=== PATIENT | female | born 1950 | race Caucasian/White ===

== ENCOUNTER → 2023-03-24 09:36 | Outpatient (REF) | payer MEDICARE, OTHER, SELFPAY | LOC: RAD 09:36 | PROVIDERS: ATTENDING PHYSICIAN Internal Medicine Cardiovascular Disease; FAMILY PHYSICIAN Internal Medicine | DX: E78.2 Mixed hyperlipidemia (principal) | CPT/HCPCS: 75574; Q9967 ==

== ENCOUNTER → 2023-04-15 07:30 | Outpatient (REF) | payer MEDICARE, OTHER, SELFPAY ==
[2023-04-15 09:09] LABS: TSH Reflex To Free T4 1.14 uIU/ml (0.47-4.68)
== END ==
LOC: REG 07:30
PROVIDERS: ATTENDING PHYSICIAN Internal Medicine Endocrinology, Diabetes & Metabolism; FAMILY PHYSICIAN Internal Medicine
DX: E03.9 Hypothyroidism, unspecified (principal)
CPT/HCPCS: 36415; 84443; 84481

== ENCOUNTER → 2023-07-14 06:30 | Day surgery (SDC) | payer MEDICARE, OTHER, SELFPAY | LOC: GI 06:30 | PROVIDERS: ATTENDING PHYSICIAN Internal Medicine Gastroenterology; FAMILY PHYSICIAN Internal Medicine | DX: Z12.11 Encounter for screening for malignant neoplasm of colon (principal); D12.2 Benign neoplasm of ascending colon; K57.30 Diverticulosis of large intestine without perforation or abscess without bleeding; K64.8 Other hemorrhoids; K64.4 Residual hemorrhoidal skin tags; Z86.010 Personal history of colon polyps | CPT/HCPCS: 45385; 88305 ==

== ENCOUNTER → 2023-07-23 09:05 | Outpatient (REF) | payer MEDICARE, OTHER, SELFPAY ==
[2023-07-23 09:46] LABS: % Basophils 0.8 % (0-2); % Immature Granulocytes 0.1 % (0-0.5); % Lymphocytes 29.8 % (20.5-51.1); % Monocytes 7.2 % (1.7-9.3); % Neutrophils 59.1 % (42.2-75.2); Absolute Basophils 0.1 10^3/uL (0-0.2); Absolute Eosinophils 0.2 10^3/uL (0-0.7); Absolute Lymphocytes 2.1 10^3/uL (1.2-3.4); Absolute Monocytes 0.5 10^3/uL (0.1-0.6); Absolute Neutrophils 4.2 10^3/uL (1.4-6.5); Hemoglobin 16.2 g/dL (12.0-16.0); Mean Corp Hgb Conc. 34.5 g/dL (33.0-37.0); Mean Corpuscular Hgb 29.6 pg (27.0-31.0); Mean Corpuscular Volume 85.8 fL (81.0-99.0); Mean Platelet Volume 10.2 fL (7.4-10.4); Nucleated Red Blood Cells % 0 %; Platelet Count 283 10^3/uL (130-400); Red Blood Cell Count 5.48 10^6/uL (4.20-5.40); Red Cell Dist. Width 13.5 % (11.5-14.5); White Blood Cell Count 7.1 10^3/uL (4.8-10.8)
[2023-07-23 10:10] LABS: Blood Urea Nitrogen 18 mg/dl (7-17); Calcium 9.8 mg/dl (8.4-10.2); Carbon Dioxide 26 mmol/L (22-30); Chloride 107 mmol/L (98-107); Glucose 109 mg/dl (70-99); Potassium 4.3 mmol/L (3.5-5.1); Sodium 142 mmol/L (135-145); eGFR > 60.00
== END ==
LOC: REG 09:05
PROVIDERS: ATTENDING PHYSICIAN Surgery
DX: K40.90 Unilateral inguinal hernia, without obstruction or gangrene, not specified as recurrent (principal)
CPT/HCPCS: 36415; 80048; 85025

== ENCOUNTER → 2023-08-02 08:15 | Outpatient (REF) | payer MEDICARE, OTHER, SELFPAY | LOC: RAD 08:15 | PROVIDERS: ATTENDING PHYSICIAN Surgery; FAMILY PHYSICIAN Internal Medicine | DX: K40.90 Unilateral inguinal hernia, without obstruction or gangrene, not specified as recurrent (principal) | CPT/HCPCS: 74177; Q9967 ==

== ENCOUNTER → 2023-09-10 12:40 | Outpatient (REF) | payer MEDICARE, OTHER, SELFPAY | LOC: RAD 12:40 | PROVIDERS: ATTENDING PHYSICIAN Surgery; FAMILY PHYSICIAN Internal Medicine | DX: K40.90 Unilateral inguinal hernia, without obstruction or gangrene, not specified as recurrent (principal); R59.1 Generalized enlarged lymph nodes | CPT/HCPCS: 76882 ==

== ENCOUNTER → 2023-10-25 07:05 | Outpatient (REF) | payer MEDICARE, OTHER, SELFPAY ==
[2023-10-25 08:16] LABS: % Eosinophils 3.1 % (0-6); % Immature Granulocytes 0.1 % (0-0.5); % Lymphocytes 24.2 % (20.5-51.1); % Monocytes 6.6 % (1.7-9.3); Absolute Basophils 0.1 10^3/uL (0-0.2); Absolute Eosinophils 0.2 10^3/uL (0-0.7); Absolute Lymphocytes 1.7 10^3/uL (1.2-3.4); Absolute Monocytes 0.5 10^3/uL (0.1-0.6); Absolute Neutrophils 4.6 10^3/uL (1.4-6.5); Hematocrit 45.9 % (37.0-47.0); Hemoglobin 15.7 g/dL (12.0-16.0); Mean Corp Hgb Conc. 34.2 g/dL (33.0-37.0); Mean Corpuscular Hgb 29.2 pg (27.0-31.0); Mean Corpuscular Volume 85.3 fL (81.0-99.0); Mean Platelet Volume 10.2 fL (7.4-10.4); Nucleated Red Blood Cells % 0 %; Platelet Count 283 10^3/uL (130-400); Red Blood Cell Count 5.38 10^6/uL (4.20-5.40); Red Cell Dist. Width 13.2 % (11.5-14.5); White Blood Cell Count 7.1 10^3/uL (4.8-10.8)
[2023-10-25 08:59] LABS: ALT (SGPT) 24 U/L (0-35); AST (SGOT) 28 U/L (14-36); Albumin 4.5 g/dl (3.5-5.0); Alkaline Phosphatase 81 U/L (38-126); Blood Urea Nitrogen 18 mg/dl (7-17); Calcium 9.9 mg/dl (8.4-10.2); Carbon Dioxide 28 mmol/L (22-30); Chloride 105 mmol/L (98-107); Glucose 101 mg/dl (70-99); HDL Cholesterol 42 mg/dl; LDL Cholesterol, Calculated 140 mg/dl; Potassium 4.5 mmol/L (3.5-5.1); Sodium 144 mmol/L (135-145); Total Bilirubin 0.9 mg/dl (0.2-1.3); Total Cholesterol 229 mg/dl (50-199); Total Protein 7.1 g/dl (6.3-8.2); Triglyceride 235 mg/dl (10-149); Very Low Density Lipoprotein 47 mg/dl (0-30); eGFR 59.49
[2023-10-25 09:19] LABS: Vitamin D, 25-OH*** 34.8 ng/mL (30-80)
[2023-10-25 09:33] LABS: TSH Reflex To Free T4 1.78 uIU/ml (0.47-4.68)
[2023-10-25 11:00] LABS: Folate 7.6 ng/ml (2.76-20); Vitamin B12 403 pg/ml (239-931)
== END ==
LOC: REG 07:05
PROVIDERS: ATTENDING PHYSICIAN Internal Medicine
DX: R53.83 Other fatigue (principal); E78.2 Mixed hyperlipidemia; E03.9 Hypothyroidism, unspecified; E67.2 Megavitamin-B6 syndrome; D51.0 Vitamin B12 deficiency anemia due to intrinsic factor deficiency; E53.0 Riboflavin deficiency; M79.11 Myalgia of mastication muscle
CPT/HCPCS: 36415; 80053; 80061; 82306; 82607; 82746; 84207; 84425; 84443; 85025

== ENCOUNTER → 2023-12-03 08:02 | Outpatient (REF) | payer MEDICARE, OTHER, SELFPAY ==
[2023-12-03 09:34] LABS: % Basophils 0.7 % (0-2); % Eosinophils 3.2 % (0-6); % Immature Granulocytes 1.2 % (0-0.5); % Lymphocytes 28.3 % (20.5-51.1); % Monocytes 6.5 % (1.7-9.3); % Neutrophils 60.1 % (42.2-75.2); Absolute Basophils 0.1 10^3/uL (0-0.2); Absolute Eosinophils 0.3 10^3/uL (0-0.7); Absolute Immature Granulocytes 0.1 10^3/uL (0-0.05); Absolute Lymphocytes 2.3 10^3/uL (1.2-3.4); Absolute Monocytes 0.5 10^3/uL (0.1-0.6); Absolute Neutrophils 4.8 10^3/uL (1.4-6.5); Hematocrit 48.3 % (37.0-47.0); Hemoglobin 16.9 g/dL (12.0-16.0); Mean Corpuscular Hgb 30.6 pg (27.0-31.0); Mean Corpuscular Volume 87.3 fL (81.0-99.0); Mean Platelet Volume 10.9 fL (7.4-10.4); Nucleated Red Blood Cells % 0 %; Platelet Count 208 10^3/uL (130-400); Red Blood Cell Count 5.53 10^6/uL (4.20-5.40); Red Cell Dist. Width 13.2 % (11.5-14.5)
[2023-12-03 10:29] LABS: ALT (SGPT) 30 U/L (0-35); AST (SGOT) 30 U/L (14-36); Albumin 4.9 g/dl (3.5-5.0); Alkaline Phosphatase 76 U/L (38-126); Blood Urea Nitrogen 22 mg/dl (7-17); Calcium 9.7 mg/dl (8.4-10.2); Carbon Dioxide 29 mmol/L (22-30); Chloride 102 mmol/L (98-107); Glucose 102 mg/dl (70-99); Potassium 4.2 mmol/L (3.5-5.1); Sodium 144 mmol/L (135-145); Total Bilirubin 0.8 mg/dl (0.2-1.3); Total Protein 7.7 g/dl (6.3-8.2); eGFR 59.49
[2023-12-03 10:31] LABS: Erythrocyte Sed Rate 14 mm/hour (0-20)
[2023-12-03 10:55] LABS: Hepatitis B Surface Antigen Negative (Negative)
[2023-12-03 11:13] LABS: Hepatitis B Surface Antibody Negative; Hepatitis C Antibody Negative (Negative); TSH 1.77 uIU/ml (0.47-4.68)
[2023-12-03 11:16] LABS: Hepatitis B Core Ab, IgM Negative (Negative)
[2023-12-04 09:11] LABS: Intact PTH 78.3 pg/ml (13.6-85.8)
[2023-12-05 09:50] LABS: HLA-B27 Negative (Negative)
== END ==
LOC: REG 08:02
PROVIDERS: ATTENDING PHYSICIAN Student in an Organized Health Care Education/Training Program; FAMILY PHYSICIAN Internal Medicine
DX: G89.29 Other chronic pain (principal); K75.81 Nonalcoholic steatohepatitis (NASH); M19.90 Unspecified osteoarthritis, unspecified site; M54.50 Low back pain, unspecified; R21 Rash and other nonspecific skin eruption; E78.5 Hyperlipidemia, unspecified
CPT/HCPCS: 36415; 80053; 83970; 84443; 85025; 85652; 86140; 86705; 86706; 86803; 86812; 87340

== ENCOUNTER → 2023-12-24 11:19 | Outpatient (REF) | payer MEDICARE, OTHER, SELFPAY ==
[2023-12-24 11:58] LABS: % Eosinophils 2.8 % (0-6); % Immature Granulocytes 0.3 % (0-0.5); % Lymphocytes 26.9 % (20.5-51.1); % Monocytes 9.3 % (1.7-9.3); % Neutrophils 59.7 % (42.2-75.2); Absolute Basophils 0.1 10^3/uL (0-0.2); Absolute Eosinophils 0.2 10^3/uL (0-0.7); Absolute Lymphocytes 2.2 10^3/uL (1.2-3.4); Absolute Monocytes 0.7 10^3/uL (0.1-0.6); Absolute Neutrophils 4.8 10^3/uL (1.4-6.5); Hematocrit 45.1 % (37.0-47.0); Hemoglobin 15.5 g/dL (12.0-16.0); Mean Corp Hgb Conc. 34.4 g/dL (33.0-37.0); Mean Corpuscular Hgb 30.2 pg (27.0-31.0); Mean Corpuscular Volume 87.7 fL (81.0-99.0); Mean Platelet Volume 10.2 fL (7.4-10.4); Nucleated Red Blood Cells % 0 %; Platelet Count 268 10^3/uL (130-400); Red Blood Cell Count 5.14 10^6/uL (4.20-5.40); Red Cell Dist. Width 13.3 % (11.5-14.5)
== END ==
LOC: REG 11:19
PROVIDERS: ATTENDING PHYSICIAN Nurse Practitioner Family
DX: D58.2 Other hemoglobinopathies (principal)
CPT/HCPCS: 36415; 85025

== ENCOUNTER → 2024-01-03 09:15 | Outpatient (REF) | payer MEDICARE, OTHER, SELFPAY ==
[2024-01-03 10:16] LABS: Urine Albumin Negative (Neg - Trace); Urine Bilirubin Negative (Negative); Urine Character Clear (Clear); Urine Color Yellow; Urine Glucose Negative (Negative); Urine Ketone Negative (Negative); Urine Leukocyte 1+ (Negative); Urine Nitrite Negative (Negative); Urine Occult Blood Negative (Negative); Urine Specific Gravity 1.015 (<1.030); Urine Urobilinogen Negative (Neg - 1+)
[2024-01-03 10:38] LABS: % Basophils 0.8 % (0-2); % Eosinophils 2.4 % (0-6); % Immature Granulocytes 0.1 % (0-0.5); % Lymphocytes 25.4 % (20.5-51.1); % Monocytes 7.3 % (1.7-9.3); Absolute Basophils 0.1 10^3/uL (0-0.2); Absolute Eosinophils 0.2 10^3/uL (0-0.7); Absolute Lymphocytes 1.9 10^3/uL (1.2-3.4); Absolute Monocytes 0.6 10^3/uL (0.1-0.6); Absolute Neutrophils 4.8 10^3/uL (1.4-6.5); Hematocrit 52.1 % (37.0-47.0); Mean Corp Hgb Conc. 32.6 g/dL (33.0-37.0); Mean Corpuscular Hgb 29.7 pg (27.0-31.0); Mean Corpuscular Volume 91.1 fL (81.0-99.0); Mean Platelet Volume 10.9 fL (7.4-10.4); Nucleated Red Blood Cells % 0 %; Platelet Count 231 10^3/uL (130-400); Red Blood Cell Count 5.72 10^6/uL (4.20-5.40); Red Cell Dist. Width 13.2 % (11.5-14.5); White Blood Cell Count 7.5 10^3/uL (4.8-10.8)
[2024-01-03 10:41] LABS: Urine Mucus Few
[2024-01-03 10:44] LABS: Urine Red Blood Cell 0-2 /HPF (0-2); Urine White Cell 0-2 /HPF (0-5)
[2024-01-03 11:04] LABS: ALT (SGPT) 27 U/L (0-35); AST (SGOT) 30 U/L (14-36); Alkaline Phosphatase 77 U/L (38-126); Blood Urea Nitrogen 18 mg/dl (7-17); Calcium 9.6 mg/dl (8.4-10.2); Carbon Dioxide 28 mmol/L (22-30); Chloride 101 mmol/L (98-107); Glucose 101 mg/dl (70-99); Potassium 4.6 mmol/L (3.5-5.1); Sodium 145 mmol/L (135-145); Total Bilirubin 0.9 mg/dl (0.2-1.3); Total Protein 7.9 g/dl (6.3-8.2); eGFR 59.49
[2024-01-03 11:15] LABS: Complement C3 170 mg/dl (88-165); IgA 199 mg/dl (70-400); IgG 1091 mg/dl (700-1600); IgM 135 mg/dl (40-230)
[2024-01-03 11:20] LABS: Urine Protein < 5 mg/dl
[2024-01-03 12:26] LABS: Erythrocyte Sed Rate 12 mm/hour (0-20)
[2024-01-05 03:49] LABS: ANA, IgG Reflex to HEp-2 None Detected (None Detected)
== END ==
LOC: REG 09:15
PROVIDERS: ATTENDING PHYSICIAN Student in an Organized Health Care Education/Training Program; FAMILY PHYSICIAN Internal Medicine
DX: E53.9 Vitamin B deficiency, unspecified (principal); G89.29 Other chronic pain; K75.81 Nonalcoholic steatohepatitis (NASH); M19.90 Unspecified osteoarthritis, unspecified site; M54.50 Low back pain, unspecified; R21 Rash and other nonspecific skin eruption
CPT/HCPCS: 36415; 80053; 81003; 81015; 82570; 82784; 84155; 84156; 84165; 85025; 85652; 86038; 86160

== ENCOUNTER → 2024-02-25 12:45 | Outpatient (REF) | payer MEDICARE, OTHER, SELFPAY ==
[2024-02-25 12:49] LABS: % Basophils 0.3 % (0-2); % Eosinophils 3.5 % (0-6); % Immature Granulocytes 0.1 % (0-0.5); % Lymphocytes 25.2 % (20.5-51.1); % Monocytes 9.3 % (1.7-9.3); % Neutrophils 61.6 % (42.2-75.2); Absolute Eosinophils 0.3 10^3/uL (0-0.7); Absolute Lymphocytes 1.9 10^3/uL (1.2-3.4); Absolute Monocytes 0.7 10^3/uL (0.1-0.6); Absolute Neutrophils 4.7 10^3/uL (1.4-6.5); Hemoglobin 16.8 g/dL (12.0-16.0); Mean Corp Hgb Conc. 33.6 g/dL (33.0-37.0); Mean Corpuscular Hgb 29.6 pg (27.0-31.0); Mean Corpuscular Volume 88.2 fL (81.0-99.0); Mean Platelet Volume 9.7 fL (7.4-10.4); Platelet Count 318 10^3/uL (130-400); Red Blood Cell Count 5.67 10^6/uL (4.20-5.40); White Blood Cell Count 7.6 10^3/uL (4.8-10.8)
[2024-02-28 06:11] LABS: Erythropoietin (EPO) 7 mU/mL (4-27)
== END ==
LOC: OIDL 12:45
PROVIDERS: ATTENDING PHYSICIAN Internal Medicine Hematology & Oncology
DX: D75.1 Secondary polycythemia (principal)
CPT/HCPCS: 82668; 85025

== ENCOUNTER → 2024-05-06 07:09 | Outpatient (REF) | payer MEDICARE, OTHER, SELFPAY ==
[2024-05-06 08:51] LABS: % Basophils 0.9 % (0-2); % Eosinophils 2.9 % (0-6); % Immature Granulocytes 0.3 % (0-0.5); % Lymphocytes 25.4 % (20.5-51.1); % Monocytes 8.5 % (1.7-9.3); Absolute Basophils 0.1 10^3/uL (0-0.2); Absolute Eosinophils 0.2 10^3/uL (0-0.7); Absolute Lymphocytes 1.7 10^3/uL (1.2-3.4); Absolute Monocytes 0.6 10^3/uL (0.1-0.6); Absolute Neutrophils 4.2 10^3/uL (1.4-6.5); Hemoglobin 15.9 g/dL (12.0-16.0); Mean Corp Hgb Conc. 33.8 g/dL (33.0-37.0); Mean Corpuscular Hgb 29.5 pg (27.0-31.0); Mean Corpuscular Volume 87.2 fL (81.0-99.0); Mean Platelet Volume 10.1 fL (7.4-10.4); Nucleated Red Blood Cells % 0 %; Platelet Count 257 10^3/uL (130-400); Red Blood Cell Count 5.39 10^6/uL (4.20-5.40); Red Cell Dist. Width 13.4 % (11.5-14.5); White Blood Cell Count 6.8 10^3/uL (4.8-10.8)
[2024-05-06 09:00] LABS: Erythrocyte Sed Rate 9 mm/hour (0-20)
[2024-05-06 09:42] LABS: ALT (SGPT) 29 U/L (0-35); AST (SGOT) 29 U/L (14-36); Albumin 4.2 g/dl (3.5-5.0); Alkaline Phosphatase 73 U/L (38-126); Blood Urea Nitrogen 21 mg/dl (7-17); Calcium 9.5 mg/dl (8.4-10.2); Carbon Dioxide 31 mmol/L (22-30); Chloride 105 mmol/L (98-107); Creatine Phosphokinase 72 U/L (30-135); Glucose 104 mg/dl (70-99); Lipase 90 U/L (23-300); Potassium 4.5 mmol/L (3.5-5.1); Sodium 144 mmol/L (135-145); Total Bilirubin 0.9 mg/dl (0.2-1.3); Total Protein 6.7 g/dl (6.3-8.2); eGFR 59.49
[2024-05-06 10:18] LABS: Ferritin 68.9 ng/ml (11.1-264.0)
[2024-05-07 19:42] LABS: Angiotensin-1-converting Enzym 32 U/L (16-85)
[2024-05-08 12:43] LABS: Lyme Antibody Screen, EIA Negative (Negative)
== END ==
LOC: RAD 07:09
PROVIDERS: ATTENDING PHYSICIAN Student in an Organized Health Care Education/Training Program; FAMILY PHYSICIAN Internal Medicine
DX: E53.9 Vitamin B deficiency, unspecified (principal); G89.29 Other chronic pain; K75.81 Nonalcoholic steatohepatitis (NASH); M19.90 Unspecified osteoarthritis, unspecified site; M54.50 Low back pain, unspecified; R21 Rash and other nonspecific skin eruption
CPT/HCPCS: 36415; 71046; 80053; 82164; 82550; 82728; 83690; 85025; 85652; 86140; 86618

== ENCOUNTER → 2024-05-30 06:42 | Outpatient (REF) | payer MEDICARE, OTHER, SELFPAY | LOC: RAD 06:42 | PROVIDERS: ATTENDING PHYSICIAN Student in an Organized Health Care Education/Training Program; FAMILY PHYSICIAN Internal Medicine | DX: R10.12 Left upper quadrant pain (principal) | CPT/HCPCS: 76700 ==

== ENCOUNTER → 2024-06-14 07:20 | Outpatient (REF) | payer MEDICARE, OTHER, SELFPAY ==
[2024-06-14 09:05] LABS: TSH 3.62 uIU/ml (0.47-4.68)
[2024-06-14 09:19] LABS: Free T3 3.05 pg/ml (2.77-5.27)
== END ==
LOC: REG 07:20
PROVIDERS: ATTENDING PHYSICIAN Internal Medicine Endocrinology, Diabetes & Metabolism; FAMILY PHYSICIAN Internal Medicine
DX: E03.9 Hypothyroidism, unspecified (principal)
CPT/HCPCS: 36415; 84439; 84443; 84481

== ENCOUNTER 2024-09-14 10:18 | Emergency (ER) | payer MEDICARE, OTHER, SELFPAY ==
[2024-09-14 10:22] VITALS: BP 138/82
[2024-09-14 10:23] VITALS: BMI 31.5
[2024-09-14 10:24] VITALS: BP 138/82
--- NOTE | 2024-09-14 10:54 | ED.GENMED ---
History of Present Illness
General
Chief Complaint: Musculo-Skeletal Complaint
Time Seen by Provider: 09/14/24 10:25
History of Present Illness
History of Present Illness:
74-year-old female presenting with left calf pain starting 09/10. Patient states that she had left meniscus surgery on 09/08. Patient states that she been taking baby aspirin with no relief. Patient denies leg swelling, chest pain or shortness of
breath. Patient states that yesterday morning she noticed a rash to the distal knee/proximal lower leg. Patient denies fever, chills, new lotions/detergents or bandages. Patient states that she had a bandage with Ciro wrap on her left knee that
she removed on Sunday 09/10. No blood thinners.
Past History
Past History
ED Past Medical History: Hypothyroidism and Other (Patient states that she had a mild [place] 3 years ago, thyroid disorder, pneumonia, sleep apnea, arthritis); Negative HTN or NIDDM
ED Past Surgical History: Cardiac (Cardiac catheterization) and Other (thyroidectomy, foot surgery, knee surgery, hysterectomy, D&C)
Social History
Tobacco: Non-smoker
Alcohol: None
Drug: None
Personal:
Living: with family
Employment: Employed
Family History
Family History: CAD
Phy Exam
Physical Exam
Physical Exam:
General: Alert, no acute distress
Head: NCAT
Eyes: clear conjunctiva
Neck: supple
Cardiac: regular rate and rhythm, no murmur
Lungs: clear to auscultation bilaterally. No wheezes, rales, or rhonchi. Speaking full unlabored sentences. No respiratory distress.
Abdomen: soft, nondistended nontender. No rebound or guarding.
MSK: no lower extremity edema bilaterally. [address] to left inferior knee with surrounding ecchymosis. No overlying erythema, increased warmth or discharge. Tenderness palpation to left calf. No left leg edema compared to right. 2+
left DP pulse. erythematous rash circumferential to left proximal lower leg, appears like contact dermatitis. no vesicles
Skin: warm, dry
Neuro: Alert and oriented x3. no focal deficits
Course
Orders/Labs/Results
Orders:
Orders
09/14/24 10:39
Venous Doppler Lwr Ext Left [US Periph Venous LOWER Ext LT] Urgent
Comment:
Reason For Exam: calf pain, recent left knee surgery
09/14/24 11:40
Apixaban [Eliquis] 10 mg PO ONCE ONE
09/14/24 11:58
CBC/With Diff [Complete Blood Count/With Diff] Urgent
CMP [Comprehensive Metabolic Panel] Urgent
Protime/PTT Urgent
09/14/24 13:50
Apixaban [Eliquis] 10 mg PO ONCE ONE
Abnormal Lab Results
09/14/24
11:58
RBC 5.54 H 10^6/uL
(4.20-5.40)
Hgb 16.1 H g/dL
(12.0-16.0)
Hct 48.1 H %
(37.0-47.0)
Absolute Monos (auto) 0.7 H 10^3/uL
(0.1-0.6)
Potassium 5.2 H mmol/L
(3.5-5.1)
BUN 22 H mg/dl
(7-17)
Glucose 107 H mg/dl
(70-99)
09/14/24 11:58
09/14/24 11:58
Vital Signs
Initial and Last Documented VS:
Initial Vital Signs
BP Pulse Ox
138/82 98
09/14/24 10:22 09/14/24 10:22
Last Documented Vital Signs
Temp Pulse Resp BP Pulse Ox
98.4 F 97 18 113/61 95
09/14/24 10:24 09/14/24 10:24 09/14/24 10:24 09/14/24 12:00 09/14/24 13:45
MDM/Problems Addressed
Differential Diagnosis Includes:
DVT, muscle strain
MDM/Problems Addressed:
Left lower extremity duplex reviewed, concerning for left posterior tibial vein DVT. Ordered labs, showed no anemia/thrombocytopenia, creatinine within normal limits. Started patient on Eliquis. Discussed results with patient at bedside. Stable
for discharge with hematology/orthopedic follow-up. Discussed return precautions including chest pain, shortness of breath, or worsening leg swelling/pain. Patient expressed verbal understanding.
*Pulse Oximetry
SaO2: 96
Oxygen Mode of Delivery: Room air
Patient hypoxic: no
*Critical Care Note
Total Time (30-74mins, 75-104mins- exclusive of procedures): Not Applicable
ED Attending Note
-
Portions of this chart may have been created with voice recognition software.� Occasional wrong word or��sound alike� substitutions may have occurred due to the inherent limitations of voice recognition software.
Discharge Plan
Departure
Patient Disposition: Home (Routine Discharge)
Date of Disposition: 09/14/24
Time of Disposition: 12:59
Patient with high blood pressure during this ER visit?: Yes
Discharge Problem:
Acute deep vein thrombosis (DVT) of left tibial vein
Instructions: Deep vein thrombosis (blood clot in the leg)
Prescriptions:
New
Eliquis DVT-PE Treat 30D Start 5 mg (74 tabs) tablets,dose pack
See Rx Instructions .ROUTE .COMPLEX Qty: 74 0RF
Rx Instructions:
orally per package directions
No Action
levothyroxine [Synthroid] 88 MCG tablet
88 mcg PO DAILY
methylprednisolone [Medrol (Mervin)] 4 MG tablets,dose pack
4 tab PO . DIRECT Qty: 1 0RF
diazepam [Valium] 5 MG tablet
5 mg PO Q8 PRN (Reason: pain) Qty: 11 0RF
Referrals:
Shree Hillman DO [Family Provider, Internal Medicine]
Donna Hayes MD [Active, Oncology]
Activity Restrictions/Additional Instructions:
Take Eliquis as prescribed
Follow-up with hematology in 2-3 weeks
Follow-up with orthopedics as scheduled next week
Return to the emergency department for chest pain, shortness of breath, black or bloody stools, if you strike your head or new/worsening symptoms
Interventions
Interventions:
*Risk Screen - Suicide Last Done: 09/14/24 10:24
*General Assessment Last Done: 09/14/24 10:24
*Neglect/Abuse Screening Last Done: 09/14/24 10:24
*ED- Fall Risk Assessment Last Done: 09/14/24 10:24
*ED COVID-19 Vaccine History Last Done: 09/14/24 10:24
*Nursing Disposition Last Done: 09/14/24 13:56
ED-Musculoskeletal Assessment Last Done: 09/14/24 10:30
Discharge Date and Time
Discharge Date/Time: 09/14/24 13:56
Print Language: GABONESE
[2024-09-14 11:12] VITALS: BP 114/67
[2024-09-14 12:00] VITALS: BP 113/61
[2024-09-14 12:08] LABS: Hematocrit 48.1 % (37.0-47.0); Hemoglobin 16.1 g/dL (12.0-16.0); Mean Corp Hgb Conc. 33.5 g/dL (33.0-37.0); Mean Corpuscular Volume 86.8 fL (81.0-99.0); Nucleated Red Blood Cells % 0 %; Platelet Count 287 10^3/uL (130-400); Red Cell Dist. Width 13.5 % (11.5-14.5)
[2024-09-14 12:17] LABS: INR 1.01; PT 13.8 Sec (11.4-14.6)
[2024-09-14 12:18] LABS: APTT 30.6 Sec (23.4-35.0)
[2024-09-14 12:42] LABS: ALT (SGPT) 24 U/L (0-35); AST (SGOT) 25 U/L (14-36); Albumin 4.6 g/dl (3.5-5.0); Alkaline Phosphatase 78 U/L (38-126); Blood Urea Nitrogen 22 mg/dl (7-17); Calcium 9.7 mg/dl (8.4-10.2); Carbon Dioxide 30 mmol/L (22-30); Chloride 106 mmol/L (98-107); Estimated Creatinine Clearance 55 ml/min; Glucose 107 mg/dl (70-99); Potassium 5.2 mmol/L (3.5-5.1); Sodium 143 mmol/L (135-145); Total Protein 7.4 g/dl (6.3-8.2); eGFR 59.12
[2024-09-14] MEDS: ELIQUIS 10 MG PO (13:52)
== END 2024-09-14 13:56 | disposition home or self-care (01) ==
LOC: EMR 10:18
PROVIDERS: EMERGENCY PHYSICIAN Emergency Medicine; FAMILY PHYSICIAN Internal Medicine
DX: I82.442 Acute embolism and thrombosis of left tibial vein (principal); M79.662 Pain in left lower leg; R21 Rash and other nonspecific skin eruption; R03.0 Elevated blood-pressure reading, without diagnosis of hypertension; E03.9 Hypothyroidism, unspecified; G47.30 Sleep apnea, unspecified; M19.90 Unspecified osteoarthritis, unspecified site; I25.2 Old myocardial infarction; Z98.890 Other specified postprocedural states; Z87.01 Personal history of pneumonia (recurrent); Z88.6 Allergy status to analgesic agent; Z88.1 Allergy status to other antibiotic agents; Z91.040 Latex allergy status; Z88.2 Allergy status to sulfonamides; Z91.048 Other nonmedicinal substance allergy status
CPT/HCPCS: 99284; 80053; 85025; 85610; 85730; 93971

== ENCOUNTER → 2024-10-13 12:30 | Outpatient (REF) | payer MEDICARE, OTHER, SELFPAY | LOC: RAD 12:30 | PROVIDERS: ATTENDING PHYSICIAN Internal Medicine Hematology & Oncology; FAMILY PHYSICIAN Internal Medicine | DX: D75.1 Secondary polycythemia (principal); R46 Symptoms and signs involving appearance and behavior; I82.4Z2 Acute embolism and thrombosis of unspecified deep veins of left distal lower extremity; I82.442 Acute embolism and thrombosis of left tibial vein | CPT/HCPCS: 93971 ==